=== PATIENT | female | born 1940 | race Hispanic/Latino ===

== ENCOUNTER 2018-11-27 19:52 | Emergency (ER) | payer MEDICARE ==
[~2018-11-27] VITALS: Ht 152.4 cm; Wt 47.2 kg
[2018-11-27] MEDS ORDERED: LIDOCAINE 5% PATCH TP ONE (20:15)
--- NOTE | 2018-11-27 20:56 | Diagnostic Imaging Report ---
Bilateral rib series with chest PA and AP 4 - views HISTORY: Fell down. Fractures. COMPARISON: None FINDINGS: No displaced rib fracture. Mild angulation of the posterolateral right ninth rib which is nonspecific, however, could reflect a nondisplaced fracture. Degenerative changes of the thoracic spine. Osseous alignment is within normal limits. The joint spaces are well-maintained. The soft tissues appear unremarkable. The lungs are clear. No pleural effusion or pneumothorax. Cardiac mediastinal silhouette is within normal limits for size. IMPRESSION: 1. Mild angulation of the posterolateral right ninth rib which is nonspecific, however, could reflect a nondisplaced fracture. 2. No acute displaced rib fracture. Signed by: Dr. Priya Viera M.D. on 11/27/2018 8:53 PM
[2018-11-27] MEDS ORDERED: LIDOPATCH1 EACH TOP (21:00)
[2018-11-27] MEDS ORDERED: ULTRAM50 MG PO (21:00)
[2018-11-27 21:07] VITALS: BP 157/60
== END 2018-11-27 21:15 | disposition home or self-care (01) ==
LOC: ER 19:52
DX: S22.31XA Fracture of one rib, right side, initial encounter for closed fracture (principal); W18.09XA Striking against other object with subsequent fall, initial encounter; Y92.230 Patient room in hospital as the place of occurrence of the external cause
CPT/HCPCS: 71101; 99282

== ENCOUNTER 2019-07-03 21:07 | Emergency (ER) | payer MEDICARE ==
[~2019-07-03] VITALS: Ht 152.4 cm; Wt 47.2 kg
[~2019-07-03 21:07] MED LIST: LIDOPATCH1 EACH TOP; ULTRAM50 MG PO
--- OUTSIDE RECORDS SUMMARY | 2019-07-03 21:10 | XMS REPORT ---
Author Author [facility] Address Unknown Phone Unavailable Care Team Providers Care Starchmaker Name Role Phone Pablo MULLINS Unavailable Unavailable Problems This patient has no known problems. Allergies, Adverse Reactions, Alerts This patient has no known allergies or adverse reactions. Medications This patient has no known medications. Results Test Description Test Time Test Comments Text Results Atomic Results Result Comments RIBPablo UNILAT W/CXR 2018-11-27 20:48:00 [place] [address] Patient Name: MARIYA BENJAMIN MR #: [id number] : 1940 Age/Sex: 78/F Req #: [id number] Adm Physician: Ordered by: MAYNOR MULLINS MD Report #: [id number] Location: ER Room/Bed: Procedure: [id number] DX/CRYSTAL HAYES W/CXR Exam Date: 11/27/18 Exam Time: 2024 REPORT STATUS: Signed Bilateral rib series with chest PA and AP 4 - views HISTORY: Fell down. Fractures. COMPARISON: None FINDINGS: No displaced rib fracture. Mild angulation of the posterolateral right ninth rib which is nonspecific, however, could reflect a nondisplaced fracture. Degenerative changes of the thoracic spine. Osseous alignment is within normal limits. The joint spaces are well-maintained. The soft tissues appear unremarkable. The lungs are clear. No pleural effusion or pneumothorax. Cardiac mediastinal silhouette is within normal limits for size. IMPRESSION: 1. Mild angulation of the posterolateral right ninth rib which is nonspecific, however, could reflect a nondisplaced fracture. 2. No acute displaced rib fracture. Signed by: Dr. Priya Jack M.D. on 11/27/2018 8:53 PM Dictated By: KAYLA JACK MD, MD 52 Transcribed By: JOB on 11/27/182052 COPY TO: MAYNOR MULLINS MD
--- OUTSIDE RECORDS SUMMARY | 2019-07-03 21:10 | XMS REPORT | Encounter Summary ---
Author Organization Unknown Address [address] [place] [address] Phone [phone] Care Team Providers Care Minesweeping Officer Name Role Phone Dr. Joe Tatum 3 [phone] Ed Preston MD 102 [phone] Mark Trevino [facility] 240 [phone] Reason for Visit Hypothyroidism; Hypertensive disorder; Migraine; Hyperlipidemia; Type 2 diabetes mellitus; AWV Annual Wellness Visit Female (VFP); Advance Care Plan Instructions 1. Adult health examination 2. Type II diabetes mellitus uncontrolled glipizide 5 mg tablet Jardiance 10 mg tablet HbA1c (hemoglobin A1c), blood 3. Hypertensive disorder hydralazine 25 mg tablet lisinopril 20 mg-hydrochlorothiazide 25 mg tablet propranolol ER 120 mg capsule,24 hr,extended release 4. Hypothyroidism levothyroxine 100 mcg tablet TSH, serum or plasma 5. Hyperlipidemia simvastatin 40 mg tablet CMP, serum or plasma lipid panel, serum 6. Migraine 7. Depression screening positive learning about depression learning about mood disorders 8. Body mass index 20-24 - normal 9. Influenza vaccination Fluzone High-Dose 2019-20 (PF) 180 mcg/0.5 mL intramuscular syringe 10. Screening for malignant neoplasm of breast MAMMO, screening, digital, bilateral - *Please call the patient and schedule* 11. Screening for malignant neoplasm of colon fecal occult blood, stool 12. Mild protein-calorie malnutrition (weight for age 75-89% of standard) 13. Osteopenia Discussion Note: None recorded. Plan of Care Patient Instructions It was good to see you in the office today for your Medicare Annual Wellness Visit. You have been provided some information on healthy nutrition, including a diet rich in fruits and vegetables, minimizing simple carbohydrates, salt, and saturated fats. I want to encourage regular cardiovascular exercise such as walking at least 30 minutes daily, 5 times per week. Please remember to schedule any preventive health measures that we talked about today. You have also been provided education on fall prevention and community- based lifestyle interventions to help reduce health risks and promote healthy living in your Annual Wellness folder. Screening Recommendations 1. Vaccines Pneumonia: No further need Influenza: Ordered 2. Mammography Screening: Ordered 3. Colorectal Cancer Screening: IFOB (every year) Ordered 4. Annual Depression Screening 5. Annual Alcohol Screening 6. Annual Fall Risk Screening 7. Annual Health Risk Assessment Patient Instructions on Filing Advance Directives Be sure that you have easy access to your paperwork for your medical power of industrial real estate agent and advanced directives. Be sure that the designated person as well as important family members have copies of those forms as well. Please have contact information of your designee readily available. In the event of hospitalization, please bring those important documents with you for reference. Reminders Provider Appointments Return to Office on or around 07/08/2019 Joe Singh MD Lab HbA1C (Hemoglobin a1C), Blood 04/06/2019 [facility] TSH, Serum or Plasma 04/06/2019 [facility] CMP, Serum or Plasma 04/06/2019 [facility] Lipid Panel, Serum 04/06/2019 [facility] Fecal Occult Blood, Stool 04/06/2019 [facility] Referral None recorded. Procedures None recorded. Surgeries None recorded. Imaging MAMMO, Screening, Digital, Bilateral 04/06/2019 [facility] Medications Name Start Date glipizide 5 mg tablet TAKE 2 TABLETS BY MOUTH TWICE DAILY hydralazine 25 mg tablet Take 1 tablet every day by oral route as directed. Jardiance 10 mg tablet Take 1 tablet every day by oral route as directed. levothyroxine 100 mcg tablet Take 1 tablet by oral route. lisinopril 20 mg-hydrochlorothiazide 25 mg tablet Take 1 tablet every day by oral route for 90 days. metformin 500 mg tablet TAKE 2 TABLETS BY MOUTH TWICE DAILY DIRECTED OneTouch Ultra Test strips Take 3 strips every day by miscell. route as needed for 90 days. propranolol ER 120 mg capsule,24 hr,extended release Take 1 capsule every day by oral route. simvastatin 40 mg tablet TAKE 1 TABLET BY MOUTH EVERY DAY Medications Administered None recorded. Vitals Height Weight BMI Blood Pressure 4 ft 9.6 in 99.8 lbs 21.1 kg/m2 130/50 mm[Hg] Lab Results None recorded. Allergies Code Code System Name Reaction Severity Status Onset NKDA Problems Name Status Onset Date Source Hypothyroidism Active 04/24/2016 Type 2 Diabetes Mellitus Active 04/24/2016 Hyperlipidemia Active 04/24/2016 Migraine Active 04/24/2016 Hypertensive Disorder Active 04/24/2016 Procedures Date Name Performed by 07/29/1999 Thyroid Surgery Information not available 07/29/1999 Partial Hysterectomy Information not available 04/06/2019 MAMMO, Screening, Digital, Bilateral [facility] [address] [place] [address] ([address]) Vaccine List Vaccine Type influenza, high dose seasonal 05/14/20170.5 mL 04/16/20180.5 mL 04/06/20190.5 mL influenza, seasonal, injectable 04/24/20160.5 mL pneumococcal conjugate PCV 13 04/24/20160.5 mL pneumococcal polysaccharide PPV23 08/11/20180.5 mL Social History Tobacco Smoking Status Never Smoker Past Encounters 04/06/2019 Adult Health Examination; Type II Diabetes Mellitus Uncontrolled; Hypertensive Disorder; Hypothyroidism; Hyperlipidemia; Migraine; Depression Screening Positive; Body Mass Index 20-24 - Normal; Influenza Vaccination; Screening for Malignant Neoplasm of Breast; Screening for Malignant Neoplasm of Colon; Mild Protein-calorie Malnutrition (Weight for Age 75-89% of Standard); Osteopenia Joe Singh MD: [address] [place] [address], Ph. History of Present Illness Mini Cog Reported By: Patient Functional Ability: Personal/Social/ Draw a clock and write in the numbers in the correct place, and set the time to 10 minutes after 11 o'clock was completed correctly? Yes, 3 word recall: Your nurse or doctor will ask you to remember 3 words. In 5 minutes, they will ask you to repeat them. Patient recalled 3 words Opioid Use Assessment Reported By: Patient Opioid Use Assessment:: Current Use of Opioids : no use of opioids (no further questions required) Note:<div>F/u on chronic conditions. Needs refills. Compliant with meds. Non compliant with diet or exercise. Glucose readings at home 180s-200s fasting. BPs at home 100s/70s. No side effects with meds. No new concerns.
{{Yes|No}}< /div> Review of Systems Comprehensive General Adult ROS Reported By: Patient Constitutional: Constitutional: no fever Eyes: Eyes: no vision change ENMT: Ears: no ear pain. Nose: no sinus problems. Mouth/Throat: no sore throat Cardiovascular: Cardiovascular: no chest pain, no palpitations, no lightheadedness Respiratory: Respiratory: no cough, no wheezing, no shortness of breath Gastrointestinal: Gastrointestinal: no abdominal pain, no nausea, no vomiting, no constipation, no diarrhea Musculoskeletal: Musculoskeletal: no muscle aches, no swelling in the extremities Integumentary: Skin: no rashes Neurologic: Neurologic: no loss of consciousness, no headaches Psychiatric: Psych: no depression, no alcohol abuse, no anxiety, no suicidal thoughts Endocrine: Endocrine: no fatigue Physical Exam General Adult Exam (male) Reported By: Patient Constitutional: General Appearance: healthy-appearing. Level of Distress: NAD Psychiatric: Insight: good judgement. Mental Status: active and alert, normal mood, normal affect. Orientation: to time, to place, to person. Memory: recent memory normal, remote memory normal Eyes: Lids and Conjunctivae: non-injected, no discharge ENMT: Ears: TMs clear. Nose: no sinus tenderness. Lips, Teeth, and Gums: no mouth or lip ulcers. Oropharynx: moist mucous membranes Neck: Neck: supple, trachea midline. Thyroid: no enlargement, non-tender Lungs: Auscultation: breath sounds normal Cardiovascular: Heart Auscultation: RRR, normal S1, normal S2, no murmurs. Neck vessels: no carotid bruits Abdomen: Inspection and Palpation: soft, non-distended, no tenderness, no guarding Musculoskeletal:: Motor Strength and Tone: normal, normal tone. Joints, Bones, and Muscles: normal movement of all extremities. Extremities: no edema Neurologic: Gait and Station: normal gait. Cranial Nerves: grossly intact Skin: Inspection and palpation: no rash, no lesions"
--- OUTSIDE RECORDS SUMMARY | 2019-07-03 21:10 | XMS REPORT | Encounter Summary ---
Author Organization Unknown Address [address] [place] [address] Phone [phone] Care Team Providers Care Manager Learning Name Role Phone Dr. Joe Tatum 3 [phone] Ed Preston MD 102 [phone] Mark Trevino [facility] 240 [phone] Reason for Visit Hypertensive disorder; Hyperlipidemia; Type 2 diabetes mellitus; Annual Depression Screening Instructions 1. Hypertensive disorder lisinopril 20 mg-hydrochlorothiazide 25 mg tablet propranolol ER 120 mg capsule,24 hr,extended release hydralazine 25 mg tablet 2. Hyperlipidemia high cholesterol: care instructions lipid panel, serum CMP, serum or plasma simvastatin 40 mg tablet 3. Type II diabetes mellitus uncontrolled HbA1c (hemoglobin A1c), blood glipizide 5 mg tablet Jardiance 10 mg tablet metformin 500 mg tablet microalbumin:creatinine ratio, urine 4. Body mass index 20-24 - normal 5. Depression screening learning about depression 6. Bone density scan declined 7. Senile purpura 8. Peripheral vascular disease 9. Hypothyroidism Discussion Note: None recorded. Plan of Care Reminders Provider Appointments Return to Office on or around 03/31/2019 Joe Singh MD Lab HbA1C (Hemoglobin a1C), Blood 12/26/2018 [facility] Lipid Panel, Serum 12/26/2018 [facility] CMP, Serum or Plasma 12/26/2018 [facility] Microalbumin:creatinine Ratio, Urine 12/26/2018 [facility] Referral None recorded. Procedures None recorded. Surgeries None recorded. Imaging None recorded. Medications Name Start Date glipizide 5 mg tablet TAKE 2 TABLETS BY MOUTH TWICE DAILY hydralazine 25 mg tablet Take 1 tablet every day by oral route as directed for 30 days. Jardiance 10 mg tablet Take 1 tablet [...] Take 1 capsule every day by oral route for 90 days. simvastatin 40 mg tablet TAKE 1 TABLET BY MOUTH EVERY DAY Medications Administered None recorded. Vitals Height Weight BMI Blood Pressure 4 ft 9.6 in 99.8 lbs 21.1 kg/m2 (1) 170/80 mm[Hg] (2) 150/70 mm[Hg] Lab Results None recorded. Allergies Code Code System Name Reaction Severity Status Onset NKDA Problems Name Status Onset Date Source Hypothyroidism Active 04/24/2016 Type 2 Diabetes Mellitus Active 04/24/2016 Hyperlipidemia Active 04/24/2016 Migraine Active 04/24/2016 Hypertensive Disorder Active 04/24/2016 Procedures Date Name Performed by 07/29/1999 Thyroid Surgery Information not available 07/29/1999 Partial Hysterectomy Information not available Vaccine List Vaccine Type influenza, high dose seasonal 05/14/20170.5 mL 04/16/20180.5 mL influenza, seasonal, injectable 04/24/20160.5 mL pneumococcal conjugate PCV 13 04/24/20160.5 mL pneumococcal polysaccharide PPV23 08/11/20180.5 mL Social History Smoking Status Never Smoker Past Encounters 12/26/2018 Hypertensive Disorder; Hyperlipidemia; Type II Diabetes Mellitus Uncontrolled; Body Mass Index 20-24 - Normal; Depression Screening; Bone Density Scan Declined; Senile Purpura; Peripheral Vascular Disease; Hypothyroidism Joe Singh MD: [address] [place] [address], Ph. History of Present Illness Note:F/u on chronic conditions. Needs refills. Non compliant with meds (ran out of jardiance 2 weeks ago). Non compliant with diet or exercise. BPs at home 140s-160s/70s. Side effects with meds: recurrent vaginitis with jardiance. No new concerns. Review of Systems Comprehensive General Adult ROS Reported By: Patient Eyes: Eyes: no vision change Cardiovascular: Cardiovascular: no chest pain, no palpitations, no lightheadedness Respiratory: Respiratory: no cough, no wheezing, no shortness of breath Gastrointestinal: Gastrointestinal: no abdominal pain, no nausea, no vomiting, no constipation, no diarrhea Musculoskeletal: Musculoskeletal: no muscle aches, no swelling in the extremities Neurologic: Neurologic: no loss of consciousness Psychiatric: Psych: no depression, no alcohol abuse, no anxiety, no suicidal thoughts Physical Exam General Adult Exam (male) Reported By: Patient Constitutional: General Appearance: healthy-appearing. Level of Distress: NAD Psychiatric: Insight: good judgement. Mental Status: active and alert, normal mood, normal affect. Orientation: to time, to place, to person Eyes: Lids and Conjunctivae: non-injected, no discharge ENMT: Nose: no sinus tenderness. Lips, Teeth, and Gums: no mouth or lip ulcers. Oropharynx: moist mucous membranes Neck: Neck: supple, trachea midline. Thyroid: no enlargement, non-tender Lungs: Auscultation: breath sounds normal Cardiovascular: Heart Auscultation: RRR, normal S1, normal S2, no murmurs. Neck vessels: no carotid bruits Musculoskeletal:: Motor Strength and Tone: normal, normal tone. Joints, Bones, and Muscles: normal movement of all extremities. Extremities: no edema Neurologic: Gait and Station: normal gait Skin: Inspection and palpation: no rash, no lesions
[2019-07-03 21:50] LABS: CLARITY,URINE CLEAR (CLEAR); COLOR,URINE COLORLESS (YELLOW); LEUKOCYTE ESTERASE ,URINE NEGATIVE (NEGATIVE); NITRITE,URINE NEGATIVE (NEGATIVE); PROTEIN,URINE DIPSTICK NEGATIVE (NEGATIVE); URINE UROBILINOGEN 0.2 mg/dL (0.2 - 1)
[2019-07-03 21:51] LABS: BILIRUBIN,URINE NEGATIVE (NEGATIVE); KETONES,URINE NEGATIVE (NEGATIVE)
[2019-07-03 22:01] LABS: BACTERIA,URINE RARE /HPF; EPITHELIAL CELLS,URINE MODERATE /LPF
--- NOTE | 2019-07-03 22:55 | Diagnostic Imaging Report ---
EXAM: Abdomen 2 Views INDICATION: ^ABDOMINAL PAIN ^[id number] ^[id number] COMPARISON: None FINDINGS: Nonobstructive bowel gas pattern. No signs of pneumoperitoneum. No acute osseous abnormality. Degenerative changes of spine, SI joints, and bilateral hips. Unchanged left upper quadrant calcifications. IMPRESSION: 1. Nonobstructive bowel gas pattern. Signed by: Dr. Yrn Potts MD on 07/03/2019 10:52 PM
== END 2019-07-03 23:26 | disposition home or self-care (01) ==
LOC: ER 21:07
DX: R10.30 Lower abdominal pain, unspecified (principal); I10 Essential (primary) hypertension; E11.9 Type 2 diabetes mellitus without complications; E03.9 Hypothyroidism, unspecified
CPT/HCPCS: 74018; 81001; 99283

== ENCOUNTER 2019-10-01 17:35 | Observation (INO) | payer MEDICARE ==
[~2019-10-01] VITALS: Ht 152.4 cm; Wt 47.2 kg
--- OUTSIDE RECORDS SUMMARY | 2019-10-01 17:38 | XMS REPORT | Encounter Summary ---
Author Organization Unknown Address [address] [place] [address] Phone [phone] Care Team Providers Care Director Of Database Marketing Name Role Phone Dr. Davy Patrick 3 [phone] Ed Preston MD 102 [phone] Mark Trevino [facility] 240 [phone] Reason for Visit Hypertensive disorder; Hyperlipidemia; Type 2 diabetes mellitus Instructions 1. Hypertensive disorder lisinopril 20 mg-hydrochlorothiazide 25 mg tablet CMP, serum or plasma propranolol ER 120 mg capsule,24 hr,extended release 2. Type II diabetes mellitus uncontrolled Jardiance 10 mg tablet glipizide 5 mg tablet HbA1c (hemoglobin A1c), blood 3. Hyperlipidemia high cholesterol: care instructions lipid panel, serum 4. Acute bronchitis Zithromax Z-Usama 250 mg tablet codeine 10 mg-guaifenesin 100 mg/5 mL oral liquid 5. Chronic kidney disease stage 3 nephrology referral - Please contact patient to chyna. Thank you! 6. Hypothyroidism TSH, serum or plasma 7. Migraine propranolol ER 120 mg capsule,24 hr,extended release Discussion Note will refer to sports cartoonist.vehicle monitor technician if poor control dm persists,declined offer antidepressants Plan of Care Patient Instructions continue all med/watch diet/>exercise Reminders Provider Appointments None recorded. Lab Lipid Panel, Serum 08/05/2019 [facility] CMP, Serum or Plasma 08/05/2019 [facility] HbA1C (Hemoglobin a1C), Blood 08/05/2019 [facility] TSH, Serum or Plasma 08/05/2019 [facility] Referral Nephrology Referral 08/05/2019 Domingo Gonzalez MD Procedures None recorded. Surgeries None recorded. Imaging None recorded. Medications Name Start Date codeine 10 mg-guaifenesin 100 mg/5 mL oral liquid Take 10 mL every 4 hours by oral route. glipizide 5 mg tablet TAKE 2 TABLETS [...] TAKE 1 TABLET BY MOUTH EVERY DAY Zithromax Z-Usama 250 mg tablet TAKE 2 TABLETS (500 MG) BY ORAL ROUTE ONCE DAILY FOR 1 DAY THEN 1 TABLET (250 MG) BY ORAL ROUTE ONCE DAILY FOR 4 DAYS Medications Administered None recorded. Vitals Height Weight BMI Blood Pressure 4 ft 9.6 in 102 lbs 21.6 kg/m2 (1) 164/82 mm[Hg] (2) 160/83 mm[Hg] Results Lab Results None recorded. Allergies Code Code System Name Reaction Severity Status Onset 990693 RxNorm Peanut Active 11/27/2018 Problems Name Status Onset Date Source Hypothyroidism [...] Tobacco Smoking Status Never Smoker Past Encounters 08/05/2019 Hypertensive Disorder; Type II Diabetes Mellitus Uncontrolled; Hyperlipidemia; Acute Bronchitis; Chronic Kidney Disease Stage 3; Hypothyroidism; Migraine Davy Patrick MD: [address] [place] [address], Ph. History of Present Illness Note:f/u chronic conditions compliant with meds except out of lisinopril,not diet /exercise<div>did not consult vehicle monitor technician </div><div>depressed since loss feb 2019/brother in law yesterday,</div><div>4 d h/o green mucoid productive cough</div> Review of Systems:ROS as noted in the HPI Review of Systems None recorded. Physical Exam Cardiology Exam Reported By: Patient Constitutional: General Appearance: well-developed, appears stated age. Level of Distress: comfortable Psychiatric: Mental Status: alert, normal affect. Orientation: oriented to time, place, and person. Insight: good judgment Eyes: Lids and Conjunctivae: non-injected, anicteric, no discharge, no pallor, no arcus senilis, no xanthelasma. Pupils: PERRLA Neck: Neck: supple, trachea midline, no masses, FROM. Carotid Arteries: bilateral normal upstroke, no bruits, no thrills. Cervical Lymph Nodes: non tender, not enlarged. Thyroid: not enlarged, non tender, no nodules Lungs: Respiratory Effort: unlabored. Chest Exam: normal curvature, no thoracic deformity, no chest wall tenderness. Percussion: resonant. Auscultation: clear, no wheezing, no rales, no rhonchi Cardiovascular: Precordial Exam: non displaced focal PMI, no heaves, no precordial thrills. Rate And Rhythm: regular. Heart Sounds: normal S1, physiologically split S2, no rub, no gallop, no click. Systolic Murmur: not heard. Diastolic Murmur: not heard. Extremities: no cyanosis, no edema, no peripheral signs of emboli Skin: Inspection and Palpation: warm and dry. Nails: no clubbing
[2019-10-01] MEDS ORDERED: GLUCAGON FOR INJ 1 MG VIAL IV ONE (18:00)
[2019-10-01 18:43] LABS: BASOPHILS # (AUTO) 0.1 (0.0-0.1); EOSINOPHILS % 0.1 % (0.0-6.0); HEMATOCRIT 45.9 % (34.2-44.1); HEMOGLOBIN 14.5 g/dL (12.0-16.0); LYMPHOCYTES # (AUTO) 0.9 (1.0-3.2); LYMPHOCYTES % 9.5 % (18.0-39.1); MEAN CORPUSCULAR HEMOGLOBIN 28.5 pg (28-32); MEAN CORPUSCULAR HGB CONC 31.6 g/dL (31-35); MEAN CORPUSCULAR VOLUME 90.4 fL (81-99); MONOCYTES # (AUTO) 0.6 (0.2-0.8); NEUTROPHILS # (AUTO) 7.7 (2.1-6.9); NEUTROPHILS % 82.4 % (38.7-80.0); PLATELET COUNT 252 x10e3/uL (140-360); RED BLOOD COUNT 5.08 x10e6/uL (3.6-5.1); RED CELL DISTRIBUTION WIDTH 14.3 % (11.7-14.4)
[2019-10-01 18:51] LABS: INR 0.96; PROTHROMBIN TIME 13.3 seconds (11.9-14.5)
[2019-10-01 18:52] LABS: PARTIAL THROMBOPLASTIN TIME 24.2 seconds (23.8-35.5)
[2019-10-01 18:59] LABS: ALBUMIN 4.7 g/dL (3.5-5.0); ALBUMIN/GLOBULIN RATIO 1.2 (0.8-2.0); ANION GAP 20.1 mmol/L (8-16); CALCIUM 10.4 mg/dL (8.4-10.2); CREATININE, SERUM 1.1 mg/dL (0.57-1.11); POTASSIUM 4.1 mmol/L (3.5-5.1)
--- NOTE | 2019-10-01 21:55 | Diagnostic Imaging Report ---
History: Difficulty swallowing, history of chicken bone stuck in throat for 2 days. Comparison studies: None Technique: Axial images were obtained from the skull base to the thoracic inlet. Coronal and sagittal images reconstructed from the axial data. Dose modulation, iterative reconstruction, and/or weight based adjustment of the mA/kV was utilized to reduce the radiation dose to as low as reasonably achievable. Intravenous contrast: None Findings: Evaluation of the neck is limited due to the absence of intravenous contrast. In spite of this limitation, Soft tissues: Prominent proximal esophagus just beneath the cricoid cartilage, approximately measures 2.2cm in maximum AP dimension at the level of the thoracic inlet, with heterogeneous intrinsic soft tissue density intermixed with air. No radiopaque foreign body. Suboptimal evaluation for abscess or mass due to lack of intravenous contrast. Lymph nodes: No radiographically significant adenopathy. Vessels: Cannot evaluate. Glands (thyroid, parotid and submandibular): Status post thyroidectomy. Bilateral parotid are normal in size and symmetric. No masses. Mild atrophy of bilateral submandibular glands. Orbits: No abnormalities. Paranasal sinuses: Complete opacification of right frontal sinus. Moderate mucosal thickening in right ethmoid and maxillary sinus. Temporal bones: No abnormalities. Skull base and facial bones: Intact. Cervical spine: C3-C4: Moderate left foraminal stenosis due to facet and uncovertebral arthrosis. Posterior disc osteophyte complex results in mild canal stenosis. C4-C5: Posterior disc osteophyte complex results in moderate canal stenosis. Severe left foraminal stenosis due to facet and uncovertebral arthrosis. C5-C6: Mild right and severe left foraminal stenosis due to facet and uncovertebral arthrosis. Incidental finding: Multiple missing teeth. IMPRESSION: Mildly enlarged (2.2 cm) proximal esophagus at the origin and thoracic inlet with nonspecific intrinsic heterogeneous density mixed with air. No radiopaque foreign body. Consider further evaluation with GI consultation and direct scope examination. Signed by: Dr. Dayanara Hannah M.D. on 10/01/2019 9:53 PM
--- NOTE | 2019-10-01 23:50 | NUR ---
INITIATED TRANSFER AT THIS TIME. SPOKE WITH YUDI SANCHEZ, DRYWALL TAPERENVIRONMENTAL STUDIES FACULTY MEMBER.
--- NOTE | 2019-10-01 23:57 | NUR ---
TRANSFER CANCELED AT THIS TIME. SPOKE WITH YUDI SANCHEZ, KAYAK MAKERDIRECTOR AGENCY & STRATEGIC PARTNERSHIPS.
[2019-10-02] VITALS (9 sets, daily range): BP systolic 106–153; BP diastolic 53–68
[2019-10-02] MEDS ORDERED: ONDANSETRON HCL INJ 2MG/ML 2ML 2 MG/ML VIAL IV PRN (00:15)
--- NOTE | 2019-10-02 00:52 | NUR ---
RECEIVED REPORT FROM SHERRI RINCON NURSE. PATIENT ARRIVED VIA STRETCHER TO THE UNIT WITH HER SON ACCOMPANYING HER. PATIENT IN NO PAIN OR DISTRESS. CALL LIGHT WITHIN REACH. PATIENT IS A&OX3 AND AMBULATES.
[2019-10-02] MEDS ORDERED: JARDIANCE10 MG (01:16)
[2019-10-02] MEDS ORDERED: PROPRANOLOL HC120 MG (01:16)
[2019-10-02] MEDS ORDERED: LISINOPRIL-HCT1 EAC1 (01:16)
[2019-10-02] MEDS ORDERED: PNEUMOCOCCAL VACCINE POLYVALENT 23 MCG/0.5 ML VIAL IM SCH ×2 (01:16→19:45)
[2019-10-02] MEDS ORDERED: METFORMIN HCL500 MG (01:16)
[2019-10-02] MEDS ORDERED: SIMVASTATIN40 MG (01:16)
[2019-10-02] MEDS ORDERED: LEVOTHYROXINE100 MCG (01:16)
[2019-10-02] MEDS ORDERED: GLIPIZIDE5 MG (01:16)
[2019-10-02] MEDS: SODIUM CHLORIDE 0.9% 1000ML 1,000 ML IV SCH ×2 (01:43→13:36)
--- NOTE | 2019-10-02 07:03 | NUR ---
GAVE REPORT TO ONCOMING NURSE. CALL LIGHT WITHIN REACH. PATIENT IN BED. SON AT BEDSIDE
--- NOTE | 2019-10-02 09:05 | NUR ---
ASSESSMENT: Spiritual concern Sas Clinical Programmer responded to consult request. Pt worried concerning illness and upcoming procedure. Pt's son at bedside. Pt requested prayer. Pt identifies as Jew. Intervention: Provided hospitality and compassionate listening. Facilitated illness review. Provided prayer from Jew tradition. Provided information on how to reach stock ranch supervisor, if needed. Outcome: Pt & son expressed appreciation for visit. No need to follow as this time. CELESTINO GRIMM Sas Clinical Programmer Spiritual Care Department O: [phone]
[2019-10-02] MEDS ORDERED: PROPOFOL IV EMULSION 10 MG/ML 20 ML VIAL ONE (15:08)
[2019-10-02] MEDS ORDERED: PANTOPRAZOLE 40 MG 10ML VIAL IV STA (17:52)
[2019-10-02] MEDS ORDERED: PANTOPRAZOLE 40 MG 10ML VIAL ONE (17:57)
--- NOTE | 2019-10-02 18:36 | NUR ---
patient back from endoscopy now. Dr Ramirez paged about discharge order.
--- NOTE | 2019-10-02 18:44 | NUR ---
OK to discharge per Dr Ramirez and Dr Phelan.
[2019-10-02] MEDS ORDERED: PANTOPRAZOLE SO40 MG PO (18:57)
--- NOTE | 2019-10-02 19:00 | NUR ---
RECEIVED REPORT FROM PREVIOUS NURSE. PATIENT READY TO GO HOME. CHILDREN AT THE BEDSIDE. PATIENT IN BED.
--- NOTE | 2019-10-02 20:09 | NUR ---
PATIENT LEFT VIA WHEELCHAIR TO PRIVATE AUTO. ALL HER CHILDREN WERE AT THE BEDSIDE WHEN SHE WAS GIVEN HER DISCHARGE ORDERS AND THE IV WAS TAKEN OUT WITH THE CATH INTACT. PATIENT WAS ALSO GIVEN THE PNEUMOCOCCAL VACCINE. PATIENT WAS IN NO PAIN OR DISTRESS WHEN LEAVING. CHILDREN COLLECTED ALL HER BELONGINGS.
--- NOTE | 2019-10-03 01:10 | Operative Report ---
DATE OF PROCEDURE: 10/02/2019 SURGEON: John Phelan MD PROCEDURE: Esophagogastroduodenoscopy with biopsies. INDICATIONS FOR PROCEDURE: Foreign body in esophagus. MEDICATIONS: The patient was done under MAC, please see anesthesiologist's note. PROCEDURE IN DETAIL: With the patient in left lateral decubitus position, a flexible fiberoptic Olympus gastroscope was introduced into the esophagus under direct visualization without any difficulty. An approximately 1 cm ulcer was noted in the esophagus just below the upper esophageal sphincter. There was no active bleeding. Most likely the ulcer was induced by necrosis secondary to the impacted food bolus, which appears to have transiently passed into the stomach. There was some patchy erythema noted in distal esophagus. A Schatzki ring was noted at the GE junction. The scope was then advanced with ease into the stomach, traversing a small hiatal hernia. Mucosa overlying the antrum and the body revealed some diffuse intense erythema and moderate edema, and biopsies were obtained and sent to stain for H pylori. Pylorus was of normal contour and shape, was intubated with ease, and the scope was advanced all the way to the second portion of the duodenum. Biopsies were obtained from the proximal second portion and duodenal bulb to rule out sprue. The scope was then withdrawn back into the stomach and retroflexed. Mucosa overlying the fundus revealed also similar inflammatory changes. The cardia appeared to be within normal limits. The scope was then straightened out and it was subsequently withdrawn. The patient tolerated the procedure well. IMPRESSION: 1. Approximately 1 cm ulcer just below upper esophageal sphincter secondary to ischemia induced by the impacted food bolus. This precluded esophageal dilatation for fear of inducing an esophageal perforation. 2. Schatzki's ring. 3. Small hiatal hernia. 4. Gastritis, biopsied. Biopsies sent to stain for Helicobacter pylori. 5. Rule out sprue. PLAN: Follow up histology. Initiate Protonix 40 mg one p.o. q.a.m. before meals. The patient will need a repeat EGD with esophageal dilatation in 7-10 days on an outpatient basis. John Phelan MD [facility] [place] /[id number] cc: Joe Singh MD
== END 2019-10-02 20:09 | disposition home or self-care (01) ==
LOC: ER 17:35 → ERHOLD 10-02 00:05 → MED/SURG 10-02 00:52
DX: T18.128A Food in esophagus causing other injury, initial encounter (principal); E11.9 Type 2 diabetes mellitus without complications; I71.4 Abdominal aortic aneurysm, without rupture; E89.0 Postprocedural hypothyroidism; I10 Essential (primary) hypertension; Z91.010 Allergy to peanuts; K22.2 Esophageal obstruction; K29.70 Gastritis, unspecified, without bleeding; K44.9 Diaphragmatic hernia without obstruction or gangrene; Z23 Encounter for immunization; Z79.84 Long term (current) use of oral hypoglycemic drugs
CPT/HCPCS: 36415 ×2; 43239; 70490; 80053; 82948; 85025; 85610; 85730; 88305; 88312; 90732; 99284; C9113; G0009; G0378; J1610; J2704; J7030

== ENCOUNTER → 2020-03-07 | Outpatient (CLI) | payer MEDICARE ==
[~2020-03-07] MED LIST changes: +GLIPIZIDE5 MG; +JARDIANCE10 MG; +LEVOTHYROXINE100 MCG; +LISINOPRIL-HCT1 EAC1; +METFORMIN HCL500 MG; +PANTOPRAZOLE SO40 MG PO; +PROPRANOLOL HC120 MG; +SIMVASTATIN40 MG
--- NOTE | 2020-03-07 13:05 | Diagnostic Imaging Report ---
EXAM: Renal Ultrasound INDICATION: CHRONIC KIDNEY DISEASE COMPARISON: None TECHNIQUE: Transverse and longitudinal images of the kidneys and bladder were obtained. FINDINGS: Right Kidney: Length: 8.9 cm Appearance: Increased echogenicity. Collecting system: No hydronephrosis Stones: None Cyst/Mass: None Left Kidney: Length: 8.8 cm Appearance: Increased echogenicity. Collecting system: No hydronephrosis Stones: None Cyst/Mass: None Bladder: Unremarkable in appearance. Ureteral jets are not visualized. The prevoid volume is 141.3 cc. The post void volume is 23.2 cc. IMPRESSION: Increased bilateral renal echogenicity, which may be seen in the setting of medical renal disease. No hydronephrosis. Signed by: Dr. Ne Bellamy MD on 03/07/2020 1:01 PM
== END ==
LOC: US 11:49
PROVIDERS: ATTEND Internal Medicine Nephrology
DX: N18.3 Chronic kidney disease, stage 3 (moderate) (principal)
CPT/HCPCS: 76770; 76857

== ENCOUNTER 2021-08-31 12:07 | Inpatient (IN) | payer MEDICARE ==
[~2021-08-31] VITALS: Ht 152.4 cm; Wt 47.2 kg
[~2021-08-31 12:07] MED LIST changes: -GLIPIZIDE5 MG; +GLIPIZIDE5 MG PO
[2021-08-31] MEDS ORDERED: ASPIRIN 325 MG TAB PO ONE (12:30)
[2021-08-31 12:33] LABS: BASOPHILS # (AUTO) 0.1 (0.0-0.1); BASOPHILS % 0.8 % (0.0-1.0); EOSINOPHILS # (AUTO) 0.2 (0.0-0.4); EOSINOPHILS % 1.3 % (0.0-6.0); HEMATOCRIT 33.7 % (34.2-44.1); HEMOGLOBIN 10.8 g/dL (12.0-16.0); LYMPHOCYTES # (AUTO) 1.1 (1.0-3.2); LYMPHOCYTES % 9.8 % (18.0-39.1); MEAN CORPUSCULAR HEMOGLOBIN 28.2 pg (28-32); MONOCYTES # (AUTO) 0.8 (0.2-0.8); MONOCYTES % 7.1 % (4.4-11.3); NEUTROPHILS % 80.3 % (38.7-80.0); PLATELET COUNT 206 x10e3/uL (140-360); RED BLOOD COUNT 3.83 x10e6/uL (3.6-5.1); RED CELL DISTRIBUTION WIDTH 13.2 % (11.7-14.4)
[2021-08-31 13:00] LABS: INR 0.93; PROTHROMBIN TIME 13.1 seconds (11.9-14.5)
[2021-08-31 13:11] LABS: ALBUMIN 3.6 g/dL (3.5-5.0); ANION GAP 16.8 mmol/L (8-16); CALCIUM 8.9 mg/dL (8.4-10.2); CREATININE, SERUM 1.2 mg/dL (0.57-1.11); POTASSIUM 4.8 mmol/L (3.5-5.1)
[2021-08-31 13:12] LABS: MAGNESIUM 1.8 MG/DL (1.3-2.1)
[2021-08-31] MEDS ORDERED: FUROSEMIDE INJ 10 MG/ML 4 ML VIAL IV ONE (13:30)
[2021-08-31] MEDS ORDERED: SODIUM CHLORIDE FLUSH 10 ML SYR INJ PRN (13:45)
[2021-08-31] MEDS ORDERED: ONDANSETRON HCL INJ 2MG/ML 2ML 2 MG/ML VIAL IV PRN (13:45)
[2021-08-31] MEDS ORDERED: ASPIRIN 81 MG CHEW TAB PO ONE (13:45)
[2021-08-31] MEDS ORDERED: GLUCAGON FOR INJ 1 MG VIAL IV ONE (14:15)
[2021-08-31] MEDS ORDERED: GLUCAGON FOR INJ 1 MG VIAL ONE (14:43)
[2021-08-31 21:10] LABS: CREATINE KINASE MB 1.1 ng/mL (0-5.0)
[2021-09-01] MEDS: GLIPIZIDE 5 MG TAB PO SCH (05:11)
[2021-09-01] MEDS: METFORMIN HCL 500 MG TAB PO SCH ×2 (05:11→19:15)
[2021-09-01] MEDS: LEVOTHYROXINE SODIUM 100 MCG TAB PO SCH ×2 (05:11→19:15)
[2021-09-01 05:29] LABS: BASOPHILS % 0.3 % (0.0-1.0); HEMATOCRIT 32.1 % (34.2-44.1); HEMOGLOBIN 10.3 g/dL (12.0-16.0); LYMPHOCYTES # (AUTO) 0.6 (1.0-3.2); LYMPHOCYTES % 4.7 % (18.0-39.1); MEAN CORPUSCULAR HEMOGLOBIN 28.1 pg (28-32); MEAN CORPUSCULAR HGB CONC 32.1 g/dL (31-35); MEAN CORPUSCULAR VOLUME 87.5 fL (81-99); MONOCYTES # (AUTO) 1.3 (0.2-0.8); MONOCYTES % 11.1 % (4.4-11.3); NEUTROPHILS # (AUTO) 9.9 (2.1-6.9); NEUTROPHILS % 83.4 % (38.7-80.0); PLATELET COUNT 184 x10e3/uL (140-360); RED BLOOD COUNT 3.67 x10e6/uL (3.6-5.1); RED CELL DISTRIBUTION WIDTH 13.3 % (11.7-14.4)
[2021-09-01 05:51] LABS: CREATINE KINASE MB 0.5 ng/mL (0-5.0)
[2021-09-01 06:46] LABS: MAGNESIUM 1.8 MG/DL (1.3-2.1); PHOSPHORUS 4.4 MG/DL (2.3-4.7)
[2021-09-01 06:52] LABS: ALBUMIN 3.3 g/dL (3.5-5.0); ANION GAP 14.5 mmol/L (8-16); CALCIUM 8.7 mg/dL (8.4-10.2); CREATININE, SERUM 1.28 mg/dL (0.57-1.11); POTASSIUM 3.5 mmol/L (3.5-5.1)
[2021-09-01] MEDS: NITROGLYCERIN 0.2 MG/HR PATCH TOP SCH (09:00)
[2021-09-01] MEDS: PANTOPRAZOLE SOD 40 MG TABEC PO SCH (09:00)
[2021-09-01] MEDS: ASPIRIN 81 MG ENTERIC COATED PO SCH (09:00)
[2021-09-01] MEDS ORDERED: MIDAZOLAM HCL 2 MG/2 ML VIAL ONE (11:49)
[2021-09-01] MEDS ORDERED: LIDOCAINE HCL 2% LOCAL 20 ML VIAL ONE (11:49)
[2021-09-01] MEDS ORDERED: GENTAMICIN SULFATE 40 MG/ML 2 ML VIAL ONE (11:49)
[2021-09-01] MEDS ORDERED: FENTANYL CITRATE/PF 100MCG/2 ML INJ ONE (11:49)
[2021-09-01] MEDS ORDERED: SODIUM CHLORIDE 0.9% 1000ML 2,000 ML ONE (11:50)
[2021-09-01] MEDS ORDERED: SODIUM CHLORIDE 0.9% 250ML 0 ML ONE (11:50)
[2021-09-01] MEDS ORDERED: SODIUM CHLORIDE 0.9% 500ML 500 ML ONE (11:50)
[2021-09-01] MEDS ORDERED: Vancomycin IV 1 GM VIAL ONE (11:50)
[2021-09-01 12:53] VITALS: BP 154/54
[2021-09-01 13:00] VITALS: BP 147/60
[2021-09-01 13:15] VITALS: BP 144/56
[2021-09-01 15:04] VITALS: BP 126/58
[2021-09-01 15:25] LABS: CREATINE KINASE MB 1.1 ng/mL (0-5.0)
[2021-09-01 15:57] VITALS: BP 140/56
[2021-09-01] MEDS: FUROSEMIDE INJ 10 MG/ML 4 ML VIAL IV SCH (17:37)
[2021-09-01] MEDS: SIMVASTATIN 40 MG TAB PO SCH ×3 (19:15→20:08)
[2021-09-01 20:00] VITALS: BP 106/62
[2021-09-01] MEDS ORDERED: HYDROCODONE/APAP 5MG-325MG TAB PO PRN (20:00)
[2021-09-01] MEDS ORDERED: ACETAMINOPHEN 325 MG TAB PO PRN (20:00)
[2021-09-01] MEDS ORDERED: ACETAMINOPHEN 325 MG TAB ONE (20:12)
[2021-09-01] MEDS ORDERED: DEXTROSE 50% SYRINGE 50 ML IV PRN (20:15)
[2021-09-01] MEDS: INSULIN LISPRO 100 UNIT/1 ML 3ML VIAL SQ SCH (21:07)
[2021-09-02 00:23] VITALS: BP 112/74
[2021-09-02 04:00] VITALS: BP 125/56
[2021-09-02] MEDS: LEVOTHYROXINE SODIUM 100 MCG TAB PO SCH (05:39)
[2021-09-02] MEDS: METFORMIN HCL 500 MG TAB PO SCH (06:44)
[2021-09-02 06:49] LABS: BASOPHILS # (AUTO) 0.1 (0.0-0.1); BASOPHILS % 0.6 % (0.0-1.0); EOSINOPHILS % 0.1 % (0.0-6.0); HEMATOCRIT 34.6 % (34.2-44.1); HEMOGLOBIN 10.9 g/dL (12.0-16.0); LYMPHOCYTES # (AUTO) 0.5 (1.0-3.2); LYMPHOCYTES % 5.8 % (18.0-39.1); MEAN CORPUSCULAR HEMOGLOBIN 27.9 pg (28-32); MEAN CORPUSCULAR HGB CONC 31.5 g/dL (31-35); MEAN CORPUSCULAR VOLUME 88.7 fL (81-99); MONOCYTES # (AUTO) 0.9 (0.2-0.8); MONOCYTES % 9.9 % (4.4-11.3); NEUTROPHILS # (AUTO) 7.1 (2.1-6.9); NEUTROPHILS % 82.9 % (38.7-80.0); PLATELET COUNT 180 x10e3/uL (140-360); RED CELL DISTRIBUTION WIDTH 13.4 % (11.7-14.4)
[2021-09-02 07:08] LABS: ALBUMIN 3.1 g/dL (3.5-5.0); ALBUMIN/GLOBULIN RATIO 0.9 (0.8-2.0); ANION GAP 13.6 mmol/L (8-16); CALCIUM 8.5 mg/dL (8.4-10.2); CREATININE, SERUM 1.13 mg/dL (0.57-1.11); PHOSPHORUS 2.7 MG/DL (2.3-4.7); POTASSIUM 3.6 mmol/L (3.5-5.1)
[2021-09-02 07:52] VITALS: BP 133/56
[2021-09-02] MEDS: GLIPIZIDE 5 MG TAB PO SCH (07:52)
[2021-09-02] MEDS: INSULIN LISPRO 100 UNIT/1 ML 3ML VIAL SQ SCH (07:53)
[2021-09-02] MEDS: FUROSEMIDE INJ 10 MG/ML 4 ML VIAL IV SCH (08:04)
[2021-09-02] MEDS: PANTOPRAZOLE SOD 40 MG TABEC PO SCH (08:04)
[2021-09-02] MEDS: ASPIRIN 81 MG ENTERIC COATED PO SCH (08:04)
[2021-09-02] MEDS: NITROGLYCERIN 0.2 MG/HR PATCH TOP SCH (08:05)
[2021-09-02 08:07] VITALS: BP 133/56
[2021-09-02] MEDS ORDERED: LISINOPRIL 10 MG TAB PO SCH (09:00)
[2021-09-02] MEDS ORDERED: ASPIRIN EC81 MG PO (09:58)
[2021-09-02] MEDS ORDERED: NITROGLYCERIN1 EAC3 TOP (09:58)
[2021-09-02] MEDS ORDERED: LASIX20 MG PO (10:10)
[2021-09-02] MEDS ORDERED: PROMETHAZINE 12.5MG/ NACL 0.9% 12.5 MG/50 ML BAG IV PRN (10:30)
[2021-09-02 11:28] VITALS: BP 123/54
== END 2021-09-02 11:32 | disposition home or self-care (01) | DRG 242 ==
LOC: ER 12:41 → ERHOLD 13:36 → MED/SURG 09-01 13:57
PROVIDERS: ADMIT Internal Medicine; ATTEND Internal Medicine
PROC: 0JH606Z Insertion of Pacemaker, Dual Chamber into Chest Subcutaneous Tissue and Fascia, Open Approach (ICD-10-PCS; principal; 2021-09-01)
PROC: 02H63JZ Insertion of Pacemaker Lead into Right Atrium, Percutaneous Approach (ICD-10-PCS; 2021-09-01)
PROC: 02HK3JZ Insertion of Pacemaker Lead into Right Ventricle, Percutaneous Approach (ICD-10-PCS; 2021-09-01)
DX: I44.2 Atrioventricular block, complete (principal); J81.0 Acute pulmonary edema; I13.0 Hypertensive heart and chronic kidney disease with heart failure and stage 1 through stage 4 chronic kidney disease, or unspecified chronic kidney disease; R68.84 Jaw pain; E03.9 Hypothyroidism, unspecified; R00.1 Bradycardia, unspecified; E78.5 Hyperlipidemia, unspecified; R13.10 Dysphagia, unspecified; E11.65 Type 2 diabetes mellitus with hyperglycemia; I50.9 Heart failure, unspecified; E11.22 Type 2 diabetes mellitus with diabetic chronic kidney disease; N18.9 Chronic kidney disease, unspecified; Z91.010 Allergy to peanuts; Z20.822 Contact with and (suspected) exposure to COVID-19; E11.69 Type 2 diabetes mellitus with other specified complication; K27.9 Peptic ulcer, site unspecified, unspecified as acute or chronic, without hemorrhage or perforation; E11.649 Type 2 diabetes mellitus with hypoglycemia without coma
CPT/HCPCS: 33208; 36415; 71045; 80053; 80061; 82550; 82553; 82948; 83036; 83735; 83880; 84100; 84443; 84484; 85025; 85610; 93005; 93306; 94799; 99152; 99153; 99284; C1785; C1898; J1580; J1610; J1940; J2001; J2250; J2405; J3010; J3370; J7030; J7040; J7050; U0002

== ENCOUNTER 2022-03-29 09:00 | Observation (INO) | payer MEDICARE ==
[2022-03-26 10:02] LABS: BASOPHILS # (AUTO) 0.1 (0.0-0.1); BASOPHILS % 1.3 % (0.0-1.0); EOSINOPHILS # (AUTO) 0.3 (0.0-0.4); EOSINOPHILS % 3.9 % (0.0-6.0); LYMPHOCYTES % 13.4 % (18.0-39.1); MEAN CORPUSCULAR HEMOGLOBIN 27.9 pg (28-32); MEAN CORPUSCULAR HGB CONC 31.4 g/dL (31-35); MEAN CORPUSCULAR VOLUME 88.8 fL (81-99); MONOCYTES # (AUTO) 0.7 (0.2-0.8); MONOCYTES % 10.2 % (4.4-11.3); NEUTROPHILS # (AUTO) 5.1 (2.1-6.9); NEUTROPHILS % 70.5 % (38.7-80.0); PLATELET COUNT 213 x10e3/uL (140-360); RED BLOOD COUNT 3.94 x10e6/uL (3.6-5.1); RED CELL DISTRIBUTION WIDTH 12.8 % (11.7-14.4)
[2022-03-26 10:35] LABS: ALBUMIN/GLOBULIN RATIO 1.1 (0.8-2.0); ANION GAP 16.5 mmol/L (8-16); CALCIUM 9.5 mg/dL (8.4-10.2); CREATININE, SERUM 1.11 mg/dL (0.57-1.11); POTASSIUM 4.5 mmol/L (3.5-5.1)
[2022-03-26 10:48] LABS: INR 0.96; PROTHROMBIN TIME 13.7 seconds (11.9-14.5)
[2022-03-29] VITALS (16 sets, daily range): BP systolic 105–147; BP diastolic 49–102
[~2022-03-29] VITALS: Ht 152.4 cm; Wt 49.0 kg
[~2022-03-29 09:00] MED LIST changes: +ASPIRIN EC81 MG PO; +LASIX20 MG PO; +NITROGLYCERIN1 EAC3 TOP
[2022-03-29] MEDS ORDERED: VERAPAMIL HCL 2.5 MG/ML 2 ML VIAL ONE (12:50)
[2022-03-29] MEDS ORDERED: IOPAMIDOL 370 MG/ML 100 ML INFUS..BTL INJ ONE ×2 (12:50→14:25)
[2022-03-29] MEDS ORDERED: SODIUM CHLORIDE 0.9% 1000ML 1,000 ML ONE ×2 (12:50→14:20)
[2022-03-29] MEDS ORDERED: HEPARIN SOD/SOD CHLORIDE 2,000 ML ONE (12:50)
[2022-03-29] MEDS ORDERED: FENTANYL CITRATE/PF 100MCG/2 ML INJ ONE (12:50)
[2022-03-29] MEDS ORDERED: MIDAZOLAM HCL 2 MG/2 ML VIAL ONE (12:50)
[2022-03-29] MEDS ORDERED: LIDOCAINE HCL 1% LOCAL INJ 20 ML VIAL ONE (12:51)
[2022-03-29] MEDS ORDERED: PHENYLEPHRINE HCL 1% 10 MG/ML VIAL ONE ×2 (14:34→14:37)
[2022-03-29] MEDS ORDERED: SODIUM CHLORIDE 0.9% 250ML 250 ML ONE (14:34)
[2022-03-29] MEDS ORDERED: HEPARIN SOD/SOD CHLORIDE 1,000 ML ONE (15:03)
[2022-03-29] MEDS ORDERED: ASPIRIN 325 MG TAB ONE (15:38)
[2022-03-29] MEDS ORDERED: CLOPIDOGREL BISULFATE 75 MG TAB ONE (15:38)
[2022-03-29] MEDS: INSULIN REGULAR, HUMAN 100 UNIT/1 ML SQ SCH ×2 (16:30→20:44)
[2022-03-29] MEDS ORDERED: DEXTROSE 50% SYRINGE 50 ML IV PRN (16:30)
[2022-03-29] MEDS: SODIUM CHLORIDE 0.9% 1000ML 1,000 ML IV SCH (17:02)
[2022-03-29] MEDS: CRESTOR 10MG PO SCH ×2 (20:40→20:46)
[2022-03-30] VITALS (12 sets, daily range): BP systolic 109–149; BP diastolic 46–86
[2022-03-30] MEDS: SODIUM CHLORIDE 0.9% 1000ML 1,000 ML IV SCH (02:30)
[2022-03-30] MEDS ORDERED: LEVOTHYROXINE SODIUM 100 MCG TAB PO SCH (06:00)
[2022-03-30] MEDS: INSULIN REGULAR, HUMAN 100 UNIT/1 ML SQ SCH (07:30)
[2022-03-30] MEDS ORDERED: PANTOPRAZOLE SOD 40 MG TABEC PO SCH (09:00)
[2022-03-30] MEDS ORDERED: CLOPIDOGREL BISULFATE 75 MG TAB PO SCH (09:00)
[2022-03-30] MEDS ORDERED: ASPIRIN 81 MG CHEW TAB PO SCH (09:00)
[2022-03-30] MEDS ORDERED: LISINOPRIL 20 MG TAB PO SCH (09:00)
[2022-03-30] MEDS ORDERED: CRESTOR 10MG PO SCH (09:00)
[2022-03-30] MEDS ORDERED: PLAVIX75 MG PO (10:42)
[2022-03-30] MEDS ORDERED: CRESTOR10 MG PO ×2 (10:43→10:46)
== END 2022-03-30 11:15 | disposition home or self-care (01) ==
LOC: CATH LAB 09:00 → INTOOBSV 16:18 → ICU 16:18
PROVIDERS: ADMIT Internal Medicine; ATTEND Internal Medicine
DX: I25.10 Atherosclerotic heart disease of native coronary artery without angina pectoris (principal); R94.39 Abnormal result of other cardiovascular function study; I44.2 Atrioventricular block, complete; I27.20 Pulmonary hypertension, unspecified; I25.2 Old myocardial infarction; E78.00 Pure hypercholesterolemia, unspecified; E11.69 Type 2 diabetes mellitus with other specified complication; E78.5 Hyperlipidemia, unspecified; Z20.822 Contact with and (suspected) exposure to COVID-19; Z79.4 Long term (current) use of insulin
CPT/HCPCS: 93454; C9602; 36415; 80053; 82948; 85025; 85610; 92920; 92928; 96372; 99152; 99153; 99251; C1724; C1725; C1769; C1874; C1887; G0378; J1817; J2001; J2250; J2370; J3010; J7030; J7050; Q9967

== ENCOUNTER 2022-10-21 18:34 | Emergency (ER) | payer MEDICARE ==
[~2022-10-21] VITALS: Ht 154.9 cm; Wt 49.0 kg
[~2022-10-21 18:34] MED LIST changes: +CRESTOR10 MG PO; +PLAVIX75 MG PO
[2022-10-21] MEDS ORDERED: SODIUM CHLORIDE 0.9% 1000ML 1,000 ML IV ONE (19:30)
[2022-10-21 19:52] LABS: BASOPHILS # (AUTO) 0.1 (0.0-0.1); BASOPHILS % 0.5 % (0.0-1.0); EOSINOPHILS % 0.1 % (0.0-6.0); HEMATOCRIT 36.1 % (34.2-44.1); HEMOGLOBIN 11.8 g/dL (12.0-16.0); LYMPHOCYTES # (AUTO) 0.2 (1.0-3.2); LYMPHOCYTES % 1.6 % (18.0-39.1); MEAN CORPUSCULAR HGB CONC 32.7 g/dL (31-35); MEAN CORPUSCULAR VOLUME 79.5 fL (81-99); MONOCYTES # (AUTO) 0.7 (0.2-0.8); MONOCYTES % 4.9 % (4.4-11.3); NEUTROPHILS # (AUTO) 13.6 (2.1-6.9); NEUTROPHILS % 90.4 % (38.7-80.0); PLATELET COUNT 248 x10e3/uL (140-360); RED BLOOD COUNT 4.54 x10e6/uL (3.6-5.1); RED CELL DISTRIBUTION WIDTH 13.3 % (11.7-14.4)
[2022-10-21 20:12] LABS: ALBUMIN 2.9 g/dL (3.5-5.0); ALBUMIN/GLOBULIN RATIO 0.7 (0.8-2.0); ANION GAP 18.5 mmol/L (8-16); CALCIUM 8.7 mg/dL (8.4-10.2); CREATININE, SERUM 1.93 mg/dL (0.57-1.11); POTASSIUM 4.5 mmol/L (3.5-5.1)
[2022-10-21] MEDS ORDERED: INSULIN REGULAR, HUMAN 100 UNIT/1 ML SQ ONE (20:30)
[2022-10-21 20:44] LABS: CREATINE KINASE MB 0.8 ng/mL (0-5.0)
[2022-10-21 21:40] LABS: CLARITY,URINE CLEAR (CLEAR); COLOR,URINE STRAW (YELLOW)
[2022-10-21 21:41] LABS: KETONES,URINE NEGATIVE (NEGATIVE); LEUKOCYTE ESTERASE ,URINE TRACE (NEGATIVE); NITRITE,URINE POSITIVE (NEGATIVE); PROTEIN,URINE DIPSTICK NEGATIVE (NEGATIVE); URINE UROBILINOGEN 0.2 mg/dL (0.2 - 1)
[2022-10-21 21:53] LABS: BACTERIA,URINE MANY /HPF; RBC,URINE 0-5 /HPF (0-5)
[2022-10-21] MEDS ORDERED: SODIUM CHLORIDE 0.9% 1000ML 1,000 ML IV SCH (23:30)
== END 2022-10-22 00:45 | disposition other institution (70) ==
LOC: ER 19:01
DX: R53.1 Weakness (principal); U07.1 COVID-19; N28.9 Disorder of kidney and ureter, unspecified; E87.1 Hypo-osmolality and hyponatremia; N39.0 Urinary tract infection, site not specified; D72.829 Elevated white blood cell count, unspecified; R94.31 Abnormal electrocardiogram [ECG] [EKG]
CPT/HCPCS: 36415; 70450; 71045; 74176; 80053; 81001; 82550; 82553; 82948; 83605; 84484; 85025; 87040; 87086; 87186; 93005; 99285; J0696; J7030 ×2; U0002